=== PATIENT | female | born 1970 | race Caucasian/White ===

== ENCOUNTER → 2016-05-11 | Outpatient (CLI) | payer OTHER | END | disposition home or self-care (01) | LOC: GMAM 10:48 | PROVIDERS: ATTEND Family Medicine | DX: N39.0 Urinary tract infection, site not specified (principal) ==

== ENCOUNTER 2016-06-22 08:58 | Emergency (ER) | payer OTHER ==
[2016-06-22 09:13] VITALS: TEMP 98.5
[2016-06-22] MEDS ORDERED: IBUPROFEN 200 MG TAB PO ONE (09:19)
--- NOTE | 2016-06-22 09:22 | ED.PDOC ---
History of Present Illness - General Chief Complaint: Upper Extremity Injury Stated Complaint: RIGHT WRIST INJURY Time Seen by Provider: 06/22/16 09:05 Source: patient Exam Limitations: no limitations - History of Present Illness Initial Comments: 45 YEAR OLD FEMALE WHO REPORTS RIGHT WRIST PAIN S/P FALL ON AN OUTSTRETCHED HAND WHEN SHE SLIPPED ON A WET FLOOR. Occurred: just prior to arrival Pain - Upper Extremity: mild: Wrist, right Improving Factors: immobilization Worsening Factors: movement Allergies/Adverse Reactions: Allergies Penicillin V [From Pen-Vee-K] Allergy (Severe, Verified 12/31/15 17:18) Amoxicillin Allergy (Verified 12/31/15 17:18) Home Medications: Ambulatory Orders Estradiol 1 mg PO DAILY 08/18/13 Gemfibrozil [Lopid] 600 mg PO BID 08/18/13 Fenofibric Acid [Trilipix] 135 mg PO DAILY #30 cap 07/18/14 Lisinopril 20 mg PO DAILY 11/01/15 Montelukast Sodium [Singulair] 10 mg PO DAILY 11/01/15 Budesonide (Inhalation) [Budesonide] 0.5 mg IN DAILY 11/02/15 Levocetirizine Dihydrochloride [Levocetirizine Dihydrochl] 5 mg PO DAILY Metoprolol Succinate [Metoprolol Succinate ER] 100 mg PO DAILY 11/02/15 Mupirocin 2 % Oint [Bactroban Oint] 1 applic TOP PRN PRN 11/02/15 Insulin Detemir [Levemir Pen] 14 units SUBCU QAM #1 pen 11/08/15 Potassium Chloride Tab [K-Dur] 20 meq PO DAILYBK #30 tab 11/08/15 Cyclobenzaprine HCl [Flexeril] 10 mg PO Q8HRS PRN #20 tab 12/31/15 Ibuprofen 800 mg PO Q8HR PRN #30 tab 06/22/16 Review of Systems - Review of Systems Constitutional: Denies: chills, fever Musculoskeletal: States: see HPI, joint pain. Denies: joint swelling Skin: Denies: change in color, lesions Neurological: Denies: numbness, paresthesia Past Medical History (General) - Patient Medical History Hx Seizures: No Hx Stroke: No Hx Dementia: No Hx Asthma: No Hx of COPD: No Hx Cardiac Disorders: No Hx Congestive Heart Failure: No Hx Pacemaker: No Hx Hypertension: Yes - Pt takes medication at home for hypertension Hx Thyroid Disease: No Hx Diabetes: Yes - Type 2 Hx Gastroesophageal Reflux: No Hx Renal Disease: No Hx Cancer: No Hx of HIV: No Hx Hepatitis C: No Hx MRSA: No Surgical History: cholecystectomy, Hysterectomy, other - Vaccination History Hx Tetanus, Diphtheria Vaccination: Yes Hx Influenza Vaccination: Yes Hx Pneumococcal Vaccination: No - Social History Hx Tobacco Use: No Hx Chewing Tobacco Use: No Hx Alcohol Use: No Hx Substance Use: No Hx Substance Use Treatment: No Hx Depression: No Hx Physical Abuse: No Hx Emotional Abuse: No Hx Suspected Abuse: No - Female History Patient : No Family Medical History - Family History Mother Age (years): 68 Living Status: Still Living Hx Family Asthma: No Hx Family Congestive Heart Failure: No Hx Family Hypertension: No Hx Family Stroke: No Hx Cardiac Disease: No Hx Family Diabetes: No Hx Family Cancer: No Hx Family;Other: Mother has issues with thyroid. Father Age (years): 71 Living Status: Still Living Hx Family Congestive Heart Failure: Yes Hx Family Hypertension: Yes - Hx [place] Hx Family Stroke: No Hx Cardiac Disease: No Hx Family Diabetes: Yes Hx Family Cancer: No Physical Exam - Physical Exam General Appearance: Alert, Comfortable, No apparent distress, Well Developed, Well Groomed Neck: normal inspection Shoulder Exam: normal inspection, non-tender Elbow/Forearm Exam: normal inspection, non-tender Wrist Exam: no evidence of injury, soft tissue tenderness - ALONG THE DISTAL WRIST, NO SWELLING NOTED, N/V INTACT DISTALLY Hand Exam: normal inspection, non-tender Neuro/Tendon: normal sensation, normal motor functions, normal tendon functions Mental Status: alert, oriented x 3 Skin Exam: normal color, warm/dry Progress - Results/Orders Results/Orders: PT REPORTS IMPROVEMENT IN PAIN AFTER IBUPROFEN. XRAY RESULTS DISCUSSED. VELCRO WRIST SPLINT PLACED BY NURSING. - EKG/XRAY/CT Xray Comments: WRIST: NEGATIVE FOR FX OR DISLOCATION PER RAD. Departure - Departure Clinical Impression: Right wrist sprain Time of Disposition: 10:08 Disposition: Discharge to Home or Self Care Condition: Good Departure Forms: ED Discharge - Pt. Copy, Patient Portal Self Enrollment Instructions: DI for Wrist Sprain Referrals: Dylon Minaya MD [Primary Care Provider] - 1-2 Weeks Prescriptions: Ibuprofen 800 mg PO Q8HR PRN #30 tab PRN Reason: Pain Home Medications: Ambulatory Orders Estradiol 1 mg PO DAILY 08/18/13 Gemfibrozil [Lopid] 600 mg PO BID 08/18/13 Fenofibric Acid [Trilipix] 135 mg PO DAILY #30 cap 07/18/14 Lisinopril 20 mg PO DAILY 11/01/15 Montelukast Sodium [Singulair] 10 mg PO DAILY 11/01/15 Budesonide (Inhalation) [Budesonide] 0.5 mg IN DAILY 11/02/15 Levocetirizine Dihydrochloride [Levocetirizine Dihydrochl] 5 mg PO DAILY Metoprolol Succinate [Metoprolol Succinate ER] 100 mg PO DAILY 11/02/15 Mupirocin 2 % Oint [Bactroban Oint] 1 applic TOP PRN PRN 11/02/15 Insulin Detemir [Levemir Pen] 14 units SUBCU QAM #1 pen 11/08/15 Potassium Chloride Tab [K-Dur] 20 meq PO DAILYBK #30 tab 11/08/15 Cyclobenzaprine HCl [Flexeril] 10 mg PO Q8HRS PRN #20 tab 12/31/15 Ibuprofen 800 mg PO Q8HR PRN #30 tab 06/22/16
--- NOTE | 2016-06-22 10:03 | RAD ---
EXAM DESCRIPTION: Wrist,Right 3 Views CLINICAL HISTORY: 45 years Female, RIGHT WRIST PAIN S/P FALL IMPRESSION: 3 views of the right wrist reveal no evidence of fracture or degenerative change. Electronically signed by: Efrem Agarwal MD 06/22/2016 10:02 AM CDT
[2016-06-22 10:30] VITALS: BP 147/91; O2SAT 96
== END 2016-06-22 10:22 | disposition home or self-care (01) ==
LOC: ER 08:58
DX: S63.501A Unspecified sprain of right wrist, initial encounter (principal); I10 Essential (primary) hypertension; E11.9 Type 2 diabetes mellitus without complications; Z79.899 Other long term (current) drug therapy; Z79.4 Long term (current) use of insulin; Z88.0 Allergy status to penicillin; Z88.3 Allergy status to other anti-infective agents; Z82.49 Family history of ischemic heart disease and other diseases of the circulatory system; W01.0XXA Fall on same level from slipping, tripping and stumbling without subsequent striking against object, initial encounter; Y92.9 Unspecified place or not applicable

== ENCOUNTER → 2016-09-16 | Outpatient (CLI) | payer OTHER | END | disposition home or self-care (01) | LOC: GMA 14:48 | DX: R11.0 Nausea (principal) ==

== ENCOUNTER → 2016-09-28 | Outpatient (CLI) | payer OTHER | END | disposition home or self-care (01) | LOC: GMAM 10:49 | PROVIDERS: ATTEND Family Medicine | DX: E55.9 Vitamin D deficiency, unspecified (principal) ==

== ENCOUNTER → 2016-09-29 | Outpatient (CLI) | payer OTHER | END | disposition home or self-care (01) | LOC: GMAM 14:35 | PROVIDERS: ATTEND Family Medicine | DX: D64.9 Anemia, unspecified (principal) ==

== ENCOUNTER → 2017-01-08 | Outpatient (CLI) | payer BC | END | disposition home or self-care (01) | LOC: GMAM 09:53 | PROVIDERS: ATTEND Family Medicine | DX: I10 Essential (primary) hypertension (principal); Z79.4 Long term (current) use of insulin; E55.9 Vitamin D deficiency, unspecified ==

== ENCOUNTER → 2017-02-22 | Outpatient (CLI) | payer BC ==
--- NOTE | 2017-02-22 20:48 | US ---
EXAM DESCRIPTION: Soft Tissue,Extremity: ULTRASOUND. CLINICAL HISTORY: LEFT ANKLE PAIN COMPARISON: None Available. TECHNIQUE: Transcutaneous scanning: Two-dimensional and Doppler modes.. Scanning was performed by the crayon sawyer and Dr. Garcia. FINDINGS: The Achilles tendon is intact with uniform echogenicity and contour. Normal vascularity. Small fluid collections in the soft tissues around the tendon. IMPRESSION: Achilles tendon is intact. Scattered small fluid collections abutting the tendon. Electronically signed by: Austin Garcia MD 02/22/2017 8:46 PM [facility]
== END | disposition home or self-care (01) ==
LOC: US 10:14
PROVIDERS: ATTEND Family Medicine
DX: M25.572 Pain in left ankle and joints of left foot (principal)

== ENCOUNTER → 2017-06-22 | Outpatient (CLI) | payer BC | LOC: GMAM 11:52 → EDSTATUS 11:57 | PROVIDERS: ATTEND Family Medicine | DX: E55.9 Vitamin D deficiency, unspecified (principal) ==

== ENCOUNTER → 2017-06-28 | Outpatient (CLI) | payer BC | LOC: GMAM 10:52 | PROVIDERS: ATTEND Family Medicine | DX: R80.9 Proteinuria, unspecified (principal) ==

== ENCOUNTER → 2017-07-26 | Outpatient (CLI) | payer BC | LOC: LAB.O 15:49 | PROVIDERS: ATTEND Internal Medicine Nephrology | DX: N18.4 Chronic kidney disease, stage 4 (severe) (principal) ==

== ENCOUNTER → 2018-01-18 | Outpatient (CLI) | payer BC | LOC: GMAM 11:17 | PROVIDERS: ATTEND Family Medicine | DX: E55.9 Vitamin D deficiency, unspecified (principal) ==

== ENCOUNTER → 2018-08-15 | Outpatient (CLI) | payer BC | LOC: LAB.O 13:59 | PROVIDERS: ATTEND Otolaryngology | DX: R49.0 Dysphonia (principal) ==

== ENCOUNTER 2019-07-20 17:57 | Inpatient (IN) | payer BC ==
[2019-07-20] MEDS ORDERED: MORPHINE SULFATE INJ 10 MG/ML VIAL IV ONE (18:12)
[2019-07-20] MEDS ORDERED: ONDANSETRON INJ 4 MG/2 ML VIAL IV ONE (18:12)
[2019-07-20] MEDS ORDERED: SODIUM CHLORIDE 0.9% 1000ML 1,000 ML IVS ONE (18:12)
--- NOTE | 2019-07-20 18:15 | ED.PDOC ---
History of Present Illness - General Chief Complaint: GI Problem Stated Complaint: abd pain with vomiting Time Seen by Provider: 07/20/19 18:11 Additional Information: Patient is a 56-year-old female who presents to the ED with chief complaint of upper abdominal pain and vomiting. Patient indicates her symptoms began earlier today and have been constant. Patient has a history of pancreatitis due to hyper triglyceridemia and believes she is suffering from a bout of pancreatitis. Her symptoms are similar to previous episodes of pancreatitis. Patient is status post cholecystectomy. Patient denies fever, chills, chest pain, shortness of breath, diarrhea. Patient indicates her abdominal pain is in her upper abdomen mostly on the left side. Patient denies history of heavy alcohol consumption. Review of Systems - Review of Systems Constitutional: States: no symptoms reported. Denies: chills, fever EENTM: States: no symptoms reported Respiratory: States: no symptoms reported. Denies: cough, short of breath Cardiology: States: no symptoms reported. Denies: chest pain, palpitations Gastrointestinal/Abdominal: States: see HPI, abdominal pain, nausea, vomiting. Denies: constipation, diarrhea Genitourinary: States: no symptoms reported. Denies: dysuria Musculoskeletal: States: no symptoms reported Skin: States: no symptoms reported, rash Neurological: States: no symptoms reported All other Systems: Reviewed and Negative Past Medical History (General) - Patient Medical History Hx Seizures: No Hx Stroke: No Hx Dementia: No Hx Asthma: No Hx of COPD: No Hx Cardiac Disorders: No Hx Congestive Heart Failure: No Hx Pacemaker: No Hx Hypertension: Yes - Pt takes medication at home for hypertension Hx Thyroid Disease: No Hx Diabetes: Yes - Type 2 Hx Gastroesophageal Reflux: No Hx Renal Disease: No Hx Cancer: No Hx of HIV: No Hx Hepatitis C: No Hx MRSA: No - Vaccination History Hx Tetanus, Diphtheria Vaccination: Yes Hx Influenza Vaccination: Yes Hx Pneumococcal Vaccination: No - Social History Hx Tobacco Use: No Hx Chewing Tobacco Use: No Hx Alcohol Use: No Hx Substance Use: No Hx Substance Use Treatment: No Hx Depression: No Hx Physical Abuse: No Hx Emotional Abuse: No Hx Suspected Abuse: No - Female History Patient : No Family Medical History - Family History Father Age (years): 71 Living Status: Still Living Hx Family Congestive Heart Failure: Yes Hx Family Hypertension: Yes - Hx [place] Hx Family Stroke: No Hx Cardiac Disease: No Hx Family Diabetes: Yes Hx Family Cancer: No Mother Age (years): 68 Living Status: Still Living Hx Family Asthma: No Hx Family Congestive Heart Failure: No Hx Family Hypertension: No Hx Family Stroke: No Hx Cardiac Disease: No Hx Family Diabetes: No Hx Family Cancer: No Hx Family;Other: Mother has issues with thyroid. Physical Exam - Physical Exam General Appearance: Alert, Obvious distress - Moderate, Other - Patient is actively vomiting and she has a partially filled emesis bag Eyes, Ears, Nose, Throat Exam: normal ENT inspection Neck: supple Respiratory: chest non-tender, lungs clear, normal breath sounds, no respiratory distress, no accessory muscle use Cardiovascular/Chest: normal peripheral pulses, regular rate, rhythm, no edema, no gallop, no JVD, no murmur Gastrointestinal/Abdominal: soft, tenderness - Moderate left upper quadrant and epigastric tenderness to palpation Back Exam: normal inspection, no CVA tenderness Extremity: normal range of motion, non-tender, normal inspection Neurologic: paper coater II-XII nml as tested, no motor/sensory deficits, alert, normal mood/affect, oriented x 3 Progress - Progress Progress: Differential diagnosis includes but is not limited to pancreatitis, PUD, ACS, colitis. 07/20/19 20:18 Patient feeling much better at this time, her vomiting has subsided. Patient still has abdominal pain but it is controlled following IV fluid and analgesics. Patient's lipase is considerably elevated and it is most likely due to her known severe hypertriglyceridemia. There is no concern for infection. Will maintain patient n.p.o. and admit for bowel rest and medical management. I have discussed with Shahrzad Turner, hospitalist, who agrees to admit patient. Patient is comfortable and stable at this time. - EKG/XRAY/CT Comments: EKG: Normal sinus rhythm, rate of 79, normal axis, nonspecific T wave shepherd Departure - Departure Clinical Impression: Acute pancreatitis Time of Disposition: 20:17 Disposition: Admit Patient Condition: Fair Home Medications: Ambulatory Orders RX: Estradiol 1 mg PO DAILY 08/18/13 RX: Fenofibric Acid [Trilipix] 135 mg PO DAILY #30 cap 07/18/14 RX: Lisinopril 10 mg PO DAILY 11/01/15 RX: Montelukast [Singulair] 10 mg PO DAILY 11/01/15 Insulin Glargine [Lantus Solostar] 25 unit SC BEDTIME 07/20/19 Secukinumab [Cosentyx] 150 mg SC MONTHLY 07/20/19 Decision To Admit - Decistion To Admit Decision to Admit Date: 07/20/19 Decision to Admit Time: 20:18
[2019-07-20] MEDS ORDERED: HYDROmorphone HCL INJ 2 MG/ML VIAL IV ONE ×2 (19:12→20:56)
--- NOTE | 2019-07-20 19:59 | CT ---
EXAM DESCRIPTION: Abdomen/Pelvis w/Contrast CLINICAL HISTORY: abd pain COMPARISON: None Available TECHNIQUE: Contiguous axial images of the abdomen and pelvis were obtained after the administration of intravenous contrast followed by reconstruction images.This exam was performed according to our departmental dose-optimization program, which includes automated exposure control, adjustment of the mA and/or kV according to patient size and/or use of iterative reconstruction technique. FINDINGS: There is enlargement of the pancreatic head with stranding of the peripancreatic fat compatible with acute pancreatitis changes. Linear opacities within the lower lungs may represent scar versus subsegmental atelectasis. Patient is status post hysterectomy. Patient is status post cholecystectomy. There is bilateral spondylolysis at L5. There is grade I spondylolisthesis at L5/S1. The liver, spleen and kidneys are within normal limits. There is no hydronephrosis or renal stones. Adrenal glands are within normal limits. Aorta is of normal caliber and tapering. There is no free fluid in the abdomen or pelvis. There is no bowel obstruction. The appendix is within normal limits. There is no pericecal inflammation. IMPRESSION: Findings compatible with acute pancreatitis. Electronically signed by: Chetan Leon MD 07/20/2019 7:58 PM CDT
--- NOTE | 2019-07-20 20:50 | HP ---
SUPERVISING PHYSICIAN: Anand Rothman MD CHIEF COMPLAINT: Nausea, vomiting and abdominal pain. HISTORY OF PRESENT ILLNESS: This is a 48-year-old female patient who came to the Emergency Room with a chief complaint of upper abdominal pain with nausea and vomiting. The symptoms began earlier today and they have been constant. She does have a significant history of pancreatitis due to hypertriglyceridemia and she felt like she was suffering from a bout of pancreatitis. She has had similar episodes in the past. Her vital signs on admission to the Emergency Room showed temperature 97.8, heart rate 88, blood pressure 164/108, respiratory rate 20, O2 saturation 96% on room air. Laboratory studies showed WBC 12,400, hemoglobin 13, hematocrit 38.7. She had sodium 130, potassium 3.7, chloride 94, carbon dioxide 22, BUN 11, creatinine 0.50, lactic acid 1.9, calcium 9, magnesium 2.8, lipase 3941. Urinalysis showed 100 of urine protein, 500 of urine glucose, large amount of urine blood, trace of leukocyte esterase and too numerous to count urine RBCs. CT of the abdomen showed findings compatible with acute pancreatitis. In the Emergency Room, she was given fluids and pain medications. I was called for hospital admission. PAST MEDICAL HISTORY: 1. Diabetes mellitus, type 2, on oral therapy. 2. Hypertension. 3. Psoriasis. 4. Elevated lipids. 5. History of pancreatitis. 6. Renal failure previously associated with pancreatitis. PAST SURGICAL HISTORY: 1. Cholecystectomy. 2. Hernia repair. 3. Tubal ligation. 4. Hysterectomy. 5. Left knee surgery. 6. Pancreatic pseudocyst that had been drained. 7. Deviated septum surgery. OUTPATIENT MEDICATIONS: Per the EMR and awaiting verification. ALLERGIES: PENICILLIN, AMOXICILLIN. FAMILY HISTORY: Positive for diabetes and coronary artery disease. SOCIAL HISTORY: She lives in [place]. She works as a nurses aid. She was a previous smoker and she drinks alcohol on a social basis. REVIEW OF SYSTEMS: GENERAL: Negative for fever, fatigue or weight changes. HEENT: Negative for sinus symptoms, ear pain, vision changes or sore throat. RESPIRATORY: Negative for wheezing, coughing or shortness of breath. CARDIAC: Negative for chest pain, palpitations or tachycardia. GASTROINTESTINAL: As per history of present illness. GENITOURINARY: Negative for hematuria, dysuria or polyuria. NEUROLOGIC: Negative for headache, dizziness or seizures. PHYSICAL EXAMINATION: VITAL SIGNS: Temperature 97.2, heart rate 78, blood pressure 161/103, respiratory rate 16, O2 saturation 92% on room air. GENERAL: This is a 48-year-old female patient who is lying in her hospital bed. She looks to be in moderate distress due to her nausea and vomiting. HEENT: Normocephalic, atraumatic. Pupils are equal and reactive. Oropharynx is clear. NECK: Supple without mass. RESPIRATORY: Essentially clear to auscultation bilaterally. CHEST: There is equal rise and fall of the chest with inspiration and expiration. CARDIOVASCULAR: Regular rate and rhythm. GASTROINTESTINAL: Abdomen is soft. It is diffusely tender, but especially tender in the epigastric and left upper quadrant area. Bowel sounds are positive. EXTREMITIES: No cyanosis, clubbing or edema. NEUROLOGIC: Awake, alert and oriented times three. Cranial nerves II-XII are grossly intact as tested. LABORATORY: Labs and films are as per history of present illness. IMPRESSION: 1. Acute pancreatitis with a significant history of pancreatitis. Her lipase was greater than 3900. 2. Hyperlipidemia with markedly elevated triglycerides in the past. 3. Electrolyte imbalance, mainly hyponatremia and hypochloremia. 4. Urinary tract infection. 5. Leukocytosis secondary to #1 and #4. 6. Diabetes mellitus, type 2. 7. Hypertension. PLAN: The patient has been admitted to the hospital. I have ordered labs and a lipid panel for in the morning. She will be on Lovenox for DVT prophylaxis and a proton pump inhibitor for ulcer prophylaxis. I have also put her on bowel rest as well as giving her some IV fluids. She has also got pain medications as well as antiemetics. She may need a surgical consult in the morning with general surgery. I have also put her on Rocephin for her urinary tract infection. Blood cultures have been ordered as well as urine culture. We will continue to monitor the patient closely and follow as needed. #[id number] [facility]
[2019-07-20] MEDS ORDERED: ONDANSETRON INJ 4 MG/2 ML VIAL IV PRN (20:55)
[2019-07-20] MEDS ORDERED: SODIUM CHLORIDE 0.9% (FLUSH) 10 ML SYG IV PRN (20:55)
[2019-07-20] MEDS ORDERED: HYDROmorphone HCL INJ 2 MG/ML VIAL IV PRN (20:59)
[2019-07-20] MEDS ORDERED: GLUCAGON INJ 1 MG VIAL SUBCU PRN (21:01)
[2019-07-20] MEDS ORDERED: DEXTROSE 50% 25 GM/50 ML SYG IV PRN (21:01)
[2019-07-20] MEDS ORDERED: cefTRIAXone SODIUM 1 GM in SODIUM CHL 0.9% 50ML MIN-BAG+ 50 ML IVPB ONE (21:02)
[2019-07-20] MEDS ORDERED: cefTRIAXone SODIUM 1 GM VIAL ONE (21:33)
[2019-07-20] MEDS ORDERED: SODIUM CHL 0.9% 50ML MIN-BAG+ 50 ML IVPB ONE (21:34)
[2019-07-20] MEDS: IV SET AND CAP CHANGE INJ INJ SCH (21:39)
[2019-07-20] MEDS: DEX 5% W/NACL 0.9% 1000ML 1,000 ML IVS PRN (21:39)
[2019-07-20] MEDS: ENOXAPARIN SODIUM 40 MG/0.4 ML SYG SUBCU SCH (21:40)
[2019-07-20] MEDS ORDERED: PROMETHAZINE HCL INJ 25 MG/ML VIAL ONE ×2 (22:26→22:57)
[2019-07-20] MEDS ORDERED: SODIUM CHLORIDE 0.9% 50ML 50 ML ONE ×2 (22:26→22:57)
[2019-07-20] MEDS: PROMETHAZINE HCL INJ 25 MG in SODIUM CHLORIDE 0.9% 50ML 50 ML IVPB PRN (22:29)
[2019-07-20] MEDS ORDERED: PROMETHAZINE HCL INJ 25 MG in SODIUM CHLORIDE 0.9% 50ML 50 ML IVPB ONE (22:50)
[2019-07-20] MEDS: HYDROmorphone HCL INJ 2 MG/ML VIAL IV PRN (23:10)
[2019-07-21] MEDS: INSULIN LISPRO 100 UNITS/ML PEN SUBCU SCH ×4 (00:13→18:03)
[2019-07-21] MEDS ORDERED: SODIUM CHLORIDE 0.9% 50ML 50 ML ONE (02:18)
[2019-07-21] MEDS ORDERED: PROMETHAZINE HCL INJ 25 MG/ML VIAL ONE (02:18)
[2019-07-21] MEDS: HYDROmorphone HCL INJ 2 MG/ML VIAL IV PRN ×4 (02:30→21:02)
[2019-07-21] MEDS: PROMETHAZINE HCL INJ 25 MG in SODIUM CHLORIDE 0.9% 50ML 50 ML IVPB PRN (02:30)
[2019-07-21] MEDS: PANTOPRAZOLE SODIUM TAB 40 MG PO SCH (06:11)
[2019-07-21] MEDS ORDERED: CALCIUM GLUCONATE INJ 1 GM in SODIUM CHLORIDE 0.9% 50ML 50 ML IVPB ONE (08:55)
[2019-07-21] MEDS ORDERED: cefTRIAXone SODIUM 1 GM VIAL ONE (09:12)
[2019-07-21] MEDS ORDERED: SODIUM CHL 0.9% 50ML MIN-BAG+ 50 ML IVPB ONE (09:14)
[2019-07-21] MEDS: DEX 5% W/NACL 0.9% 1000ML 1,000 ML IVS PRN (09:21)
[2019-07-21] MEDS: cefTRIAXone SODIUM 1 GM in SODIUM CHL 0.9% 50ML MIN-BAG+ 50 ML IVPB SCH (10:34)
[2019-07-21] MEDS ORDERED: SODIUM CHLORIDE 0.9% 1000ML 1,000 ML IVS ONE ×2 (11:31→11:32)
[2019-07-21] MEDS: FENOFIBRIC ACID 135 MG CAP PO SCH (12:36)
[2019-07-21] MEDS ORDERED: SIMETHICONE 80 MG TAB PO PRN (12:38)
[2019-07-21] MEDS: CALCITRIOL 0.25 MCG CAP PO SCH (17:07)
[2019-07-21] MEDS ORDERED: ICOSAPENT ETHYL 1 GM PO SCH (18:45)
[2019-07-21] MEDS: [UNRECOGNIZED DRUG - OTHER] PO SCH (19:08)
[2019-07-21] MEDS: ENOXAPARIN SODIUM 40 MG/0.4 ML SYG SUBCU SCH (20:09)
--- NOTE | 2019-07-21 20:21 | PN ---
SUPERVISING PHYSICIAN: Lester Rothman MD DATE: 07/21/19 SUBJECTIVE: The patient says she still feels pretty bad this morning, still having some abdominal pains. I have discussed with her that I will have Dr. Roper, general surgeon, take a look at her as well as review her imaging studies. She has no further complaints. She is not showing any signs of hypocalcemia, although her calcium was low this morning. She is actually able to tolerate some ice chips and some jello. OBJECTIVE: VITAL SIGNS: Temperature 98.2, pulse 98, blood pressure 115/63, respirations 18, oxygen saturation 93% on room air. GENERAL: Patient does appear a little uncomfortable but is not in any obvious distress. She is alert. CHEST: Lung sounds are clear to auscultation. HEART: Regular rate and rhythm. ABDOMEN: Soft but diffusely tender. No rebound tenderness, no guarding, no peritoneal signs. EXTREMITIES: Without any edema. NEUROLOGICAL: She is alert, and oriented x3. LABORATORY: Sodium this morning was 131 corrected to 137. Her blood sugar was 437. Anion gap was normal. BUN 9, creatinine 0.49, calcium 6.7 corrected to 7.2 for normal albumin, bilirubin 0.5. All other liver functions were within normal limits. Lipase had improved from 3941 to 699. Her lipid panel did show elevated cholesterol at 777 with triglyceride of 8486, HDL 25, LDL 68. Urinalysis showed urinary tract infection. MICROBIOLOGY: Urine cultures pending. Blood cultures pending. RADIOLOGY: No additional radiographic studies today. ASSESSMENT: 1. Acute pancreatitis secondary to elevated triglyceride levels with lipase returning to baseline level with fluids. 2. Markedly elevated triglycerides with a history of hyperlipidemia. 3. Electrolyte imbalance secondary to #1 including hypocalcemia with patient being asymptomatic. . 4. Urinary tract infection, culture pending. 5. Leukocytosis secondary to #1 and #4. 6. Diabetes mellitus, type 2. 7. Hypertension. PLAN: We will continue patient's treatments this morning with fluids. Will give her 2 liters normal saline, repeat BMP this afternoon. Plan to increase her baseline maintenance fluids with 250 until she is having good output. I have requested Dr. Roper see the patient in consultation to make sure there is not something else we are missing after looking at the CT study.. She is on Rocephin for the underlying urinary tract infection. Will await those cultures for results. Until we can transition her to outpatient management, we will continue to monitor and treat as needed, #[id number] [facility]
[2019-07-21] MEDS ORDERED: KCL 20MEQ/D5 1/2NS 1,000 ML IVS ONE (21:16)
[2019-07-21] MEDS: KCL 20MEQ/D5 1/2NS 1,000 ML IVS PRN (21:25)
[2019-07-21] MEDS ORDERED: ACETAMINOPHEN 325 MG TAB PO ONE (23:57)
[2019-07-22] MEDS: INSULIN LISPRO 100 UNITS/ML PEN SUBCU SCH ×4 (01:02→17:55)
[2019-07-22] MEDS: KCL 20MEQ/D5 1/2NS 1,000 ML IVS PRN (05:16)
[2019-07-22] MEDS: PANTOPRAZOLE SODIUM TAB 40 MG PO SCH (06:36)
[2019-07-22] MEDS: HYDROmorphone HCL INJ 2 MG/ML VIAL IV PRN (07:09)
[2019-07-22] MEDS: FENOFIBRIC ACID 135 MG CAP PO SCH (08:58)
[2019-07-22] MEDS: CALCITRIOL 0.25 MCG CAP PO SCH (08:59)
[2019-07-22] MEDS: cefTRIAXone SODIUM 1 GM in SODIUM CHL 0.9% 50ML MIN-BAG+ 50 ML IVPB SCH (09:00)
[2019-07-22] MEDS: LISINOPRIL 10 MG TAB PO SCH (09:15)
[2019-07-22] MEDS: ESTRADIOL TAB 1 MG PO SCH (09:15)
[2019-07-22] MEDS: ICOSAPENT ETHYL 2 GM PO SCH ×3 (09:39→18:25)
[2019-07-22] MEDS: [UNRECOGNIZED DRUG - OTHER] PO SCH ×3 (09:40→17:55)
[2019-07-22] MEDS ORDERED: ACETAMINOPHEN 325 MG TAB ONE (11:15)
[2019-07-22] MEDS ORDERED: ACETAMINOPHEN 325 MG TAB PO ONE (11:18)
[2019-07-22] MEDS ORDERED: CALCIUM GLUCONATE INJ 1 GM/10 ML VIAL IV ONE (11:20)
[2019-07-22] MEDS ORDERED: CALCIUM GLUCONATE INJ 1 GM in SODIUM CHLORIDE 0.9% 50ML 50 ML IVPB ONE (12:00)
--- NOTE | 2019-07-22 17:08 | PN ---
SUPERVISING PHYSICIAN: Lester Rothman MD DATE: 07/22/19 SUBJECTIVE: The patient has been tolerating some Jello and clear liquids this morning. She notes she is still having some abdominal pain but not quite as severe as it was yesterday. We have resumed her home medication, I encouraged her to start taking adequate oral intake and we can certainly monitor. She has not had any chest pain, nausea is gone, no actual emesis today. I did discuss with Dr. Wilson, the patient's calcium levels and he recommended we repeat it daily and if we need to, give her calcium gluconate along with some daily Calcitrol which has been initiated. Again, she again is not showing any signs, being symptomatic in regards to the hypocalcemia. OBJECTIVE: VITAL SIGNS: Temperature 98.2, pulse 108, blood pressure 126/56, respirations 20, oxygen saturation 93% on room air. GENERAL: Patient is resting comfortably, does not appear to be in any acute distress. CHEST: Clear to auscultation. HEART: Regular rate and rhythm. ABDOMEN: Soft, continued tenderness on the left upper quadrant which appears to be some diffuse tenderness down into the lower regions but no rebound tenderness, no guarding. NEUROLOGICAL: She is alert, and oriented x3. LABORATORY: White count was normalized yesterday, today her chemistries are showing normal electrolytes. Her lipase is down to 139, calcium 6.3, magnesium normal at 2.0, calcium corrects to 7.2 with albumin from yesterday. Blood sugars range between 137 and 212. MICROBIOLOGY: Blood cultures remain negative at 24 hours. Urine cultures pending. RADIOLOGY: No additional radiographic studies today. ASSESSMENT: 1. Acute pancreatitis secondary to elevated triglyceride levels with lipase returning to baseline level with fluids. 2. Markedly elevated triglycerides with a history of hyperlipidemia. 3. Electrolyte imbalance secondary to #1 including hypocalcemia with patient being asymptomatic. . 4. Urinary tract infection, culture pending. 5. Leukocytosis secondary to #1 and #4. 6. Diabetes mellitus, type 2. 7. Hypertension. PLAN: We will go ahead and plan on giving her another gram of calcium gluconate given the level of calcium this morning. I did start her on Calcitrol yesterday from nephrology, Dr. Wilson. Her pain is much less today and she is wanting to try to eat so we discussed going to full liquid, however, if she does not have additional nausea or vomiting, certainly we will have to modify the diet. She continues on pain management as needed. We will go ahead and saline-lock once she has adequate oral intake. We will plan to repeat labs tomorrow but I would anticipate if she is doing as well tomorrow as she is today, then we can probably discharge her home to followup in the outpatient setting. Until then, we will continue to monitor and treat as needed. #[id number] [facility]
[2019-07-22] MEDS: ACETAMINOPHEN 325 MG TAB PO PRN (19:56)
[2019-07-22] MEDS: ENOXAPARIN SODIUM 40 MG/0.4 ML SYG SUBCU SCH (20:56)
[2019-07-23] MEDS: INSULIN LISPRO 100 UNITS/ML PEN SUBCU SCH ×5 (00:54→21:10)
[2019-07-23] MEDS: PANTOPRAZOLE SODIUM TAB 40 MG PO SCH (06:27)
[2019-07-23] MEDS: ICOSAPENT ETHYL 2 GM PO SCH ×2 (08:19→16:36)
[2019-07-23] MEDS: [UNRECOGNIZED DRUG - OTHER] PO SCH ×2 (08:20→16:35)
[2019-07-23] MEDS: LISINOPRIL 10 MG TAB PO SCH (10:09)
[2019-07-23] MEDS: ESTRADIOL TAB 1 MG PO SCH (10:09)
[2019-07-23] MEDS: FENOFIBRIC ACID 135 MG CAP PO SCH (10:09)
[2019-07-23] MEDS: CALCITRIOL 0.25 MCG CAP PO SCH (10:09)
[2019-07-23] MEDS: cefTRIAXone SODIUM 1 GM in SODIUM CHL 0.9% 50ML MIN-BAG+ 50 ML IVPB SCH (10:09)
[2019-07-23] MEDS: ACETAMINOPHEN 325 MG TAB PO PRN (13:50)
--- NOTE | 2019-07-23 16:33 | PN ---
SUPERVISING PHYSICIAN: Lester Rothman MD DATE: 07/23/19 SUBJECTIVE: The patient ran a fever last night of 101.9. She has not had any nausea, she reports her abdominal pain is much less today. She has tolerated a full liquid diet. We discussed advancing her diet today with hopefully discharging tomorrow. She has no chest pain, no other complaints. OBJECTIVE: VITAL SIGNS: Temperature 98.5, pulse 97, blood pressure 147/82, respirations 16, oxygen saturation 98% on room air. GENERAL: Patient is resting comfortably, does not appear to be in any acute distress. She is alert. CHEST: Clear to auscultation. HEART: Regular rate and rhythm. ABDOMEN: Soft, mild tenderness noted in the left upper quadrant. No rebound tenderness, no guarding, no point tenderness. EXTREMITIES: Without edema. NEUROLOGICAL: She is alert, and oriented x3. LABORATORY: White count continues to be normal at 8.2, hemoglobin 10.5, hematocrit 31.7. Differential shows a resolving left shift. Chemistries show a mildly low potassium at 3.4, BUN 9, creatinine 0.58. Blood sugars range between 115 and 166. Triglycerides this morning were 1252 compared to admission of 86 and her cholesterol is down from 777 to 311. Lipase now is near normal levels at 78 compared to admission of 3941. MICROBIOLOGY: Blood cultures remain negative at 48 hours. Urine cultures pending but preliminary inhouse culture for comparison for CPL showed an E. coli that was sensitive to cephalosporins but we are still awaiting on the report. RADIOLOGY: No additional radiographic studies today. ASSESSMENT: 1. Acute pancreatitis secondary to elevated triglyceride levels resolving with treatment but with a mild fever. 2. Markedly elevated triglycerides with a history of hyperlipidemia contributing to #1. 3. Electrolyte imbalance secondary to #1 including hypocalcemia with patient being asymptomatic. . 4. Persistent hypocalcemia secondary to #1 but returning to baseline levels with patient being asymmetric. 5. Urinary tract infection, preliminary showing E. coli which was sensitive to cephalosporin there was final cultures pending. 5. Leukocytosis secondary to #1 and #4, resolved. 6. Diabetes mellitus, type 2 with stable blood sugars. 7. Hypertension, showing to be stable. PLAN: We were hoping to discharge her today but we really do not have her diet advanced and given she had 101.9 fever last night and has had a history of necrotizing pancreatitis, I think it is warranted we keep her at least an additional 24 hours and monitor as well as work to advance her diet. I would anticipate that if everything looks good tomorrow and she has not had anymore fever, then she certainly would be discharged to titrate her diet as tolerated and followup with Dr. Minaya. She will need to go home on antibiotics for the urinary tract infection, again, preliminary unofficial report showed E. coli that is sensitive to cephalosporins. I am not sure when that report will be finalized. We will keep her saline-locked as long she she is having adequate oral intake. Until we can transition her to outpatient management, we will continue to monitor and treat as needed #[id number] MTDD
--- NOTE | 2019-07-23 16:54 | PN ---
DATE: 07/23/19 SUBJECTIVE: Hospital day #3, pancreatitis. She is currently feeling well, says the pain is much, much better. She is tolerating her diet. OBJECTIVE: VITAL SIGNS: Temperature 99 and 98.4. She did have a T-max of 101 but that is down. She is non-tachycardiac. Blood pressure is normal. GENERAL: She is alert and oriented x3, feeling well. CHEST: Clear. ABDOMEN: Soft, non-tender with only mild tenderness to deep palpation discomfort but no rebound and no guarding. SKIN: No color changes. LABORATORY: White count 8, hematocrit 31, platelet count 166,000. Potassium 2.2, glucose 127. Triglycerides near 1200 down from 8,400. Lipase 699 down from 3900. ASSESSMENT: Pancreatitis with a history of pancreatitis previously with endoscopic drainage of pancreatitis pseudocyst with the current pancreatitis likely due to hypertriglyceridemia. Pancreatitis and triglycerides are coming down and she is feeling much better since she is on medications and will likely go home in the morning as planned. RECOMMENDATION: Followup with her primary care physician and I recommend she educate herself on potential dietary triggers for hypertriglycerides and try to avoid any the foods that are discouraged. Will continue medication and again followup with her primary care physician. #[id number] MTDD
[2019-07-23] MEDS: SODIUM CHLORIDE 0.9% (FLUSH) 10 ML SYG IV SCH (21:11)
[2019-07-23] MEDS: ENOXAPARIN SODIUM 40 MG/0.4 ML SYG SUBCU SCH (21:11)
[2019-07-23] MEDS: IV SET AND CAP CHANGE INJ INJ SCH (21:11)
[2019-07-24] MEDS: ACETAMINOPHEN 325 MG TAB PO PRN (00:07)
[2019-07-24] MEDS: PANTOPRAZOLE SODIUM TAB 40 MG PO SCH (05:42)
[2019-07-24] MEDS: INSULIN LISPRO 100 UNITS/ML PEN SUBCU SCH ×2 (07:00→11:30)
[2019-07-24] MEDS: [UNRECOGNIZED DRUG - OTHER] PO SCH (08:06)
[2019-07-24] MEDS: ICOSAPENT ETHYL 2 GM PO SCH (08:07)
[2019-07-24] MEDS: LISINOPRIL 10 MG TAB PO SCH (09:43)
[2019-07-24] MEDS: FENOFIBRIC ACID 135 MG CAP PO SCH (09:43)
[2019-07-24] MEDS: ESTRADIOL TAB 1 MG PO SCH (09:43)
[2019-07-24] MEDS: CALCITRIOL 0.25 MCG CAP PO SCH (09:43)
[2019-07-24] MEDS: SODIUM CHLORIDE 0.9% (FLUSH) 10 ML SYG IV SCH (09:44)
[2019-07-24] MEDS: cefTRIAXone SODIUM 1 GM in SODIUM CHL 0.9% 50ML MIN-BAG+ 50 ML IVPB SCH (09:45)
[2019-07-24 13:00] VITALS: O2SAT 99
--- NOTE | 2019-07-24 14:41 | DS ---
SUPERVISING PHYSICIAN: Cosmo Keating MD ADMISSION DIAGNOSIS: 1. Acute pancreatitis. 2. Hyperlipidemia. 3. Hypertriglyceridemia. 4. Urinary tract infection. 5. Leukocytosis. 6. Diabetes mellitus, type 2. 7. Hypertension. DISCHARGE DIAGNOSIS: 1. Acute pancreatitis. 2. Hyperlipidemia. 3. Hypertriglyceridemia. 4. Urinary tract infection. 5. Leukocytosis. 6. Diabetes mellitus, type 2. 7. Hypertension. HISTORY OF PRESENT ILLNESS: This is a 48-year-old female who came to the Emergency Room with a chief complaint of upper abdominal pain associated with nausea and vomiting. She apparently does have a history of pancreatitis secondary to hypertriglyceridemia. She was seen in the ER and noted to have a lipase of 3,941. Additionally, she had triglyceride count of 8,486. HOSPITAL COURSE: On admission, she was given fluids and antibiotics. Lipase trended down as well as triglycerides. The patient's abdominal pain resolved. Therefore, she is discharged today in stable condition. I have written her discharge prescriptions to include Calcitriol and antibiotics for urinary tract infection that will be Ceftin. She did have gram negative rods in her urine, but the actual identification and sensitivity is not back yet. Followup with her primary care physician in about a week. #[id number] MTDD
[2019-07-24 16:44] VITALS: BP 138/72; TEMP 97.1
== END 2019-07-24 14:10 | disposition home or self-care (01) | DRG 439 ==
LOC: ER 17:57 → OBSVTOIN 20:49 → MS 20:49
PROVIDERS: ADMIT Nurse Practitioner Acute Care; ATTEND Nurse Practitioner
PROC: BW211ZZ Computerized Tomography (CT Scan) of Abdomen and Pelvis using Low Osmolar Contrast (ICD-10-PCS; principal; 2019-07-20)
DX: K85.91 Acute pancreatitis with uninfected necrosis, unspecified (principal); N39.0 Urinary tract infection, site not specified; E87.1 Hypo-osmolality and hyponatremia; E78.1 Pure hyperglyceridemia; B96.20 Unspecified Escherichia coli [E. coli] as the cause of diseases classified elsewhere; E11.9 Type 2 diabetes mellitus without complications; I10 Essential (primary) hypertension; L40.9 Psoriasis, unspecified; E83.51 Hypocalcemia; Z88.0 Allergy status to penicillin; Z87.891 Personal history of nicotine dependence

== ENCOUNTER → 2019-08-29 | Outpatient (CLI) | payer BC | LOC: GMAM 14:25 | PROVIDERS: ATTEND Family Medicine | DX: K85.90 Acute pancreatitis without necrosis or infection, unspecified (principal) ==

== ENCOUNTER → 2019-12-14 | Outpatient (CLI) | payer BC | LOC: GMAM 10:34 | PROVIDERS: ATTEND Family Medicine | DX: R30.0 Dysuria (principal) ==

== ENCOUNTER → 2020-03-07 | Outpatient (CLI) | payer BC | LOC: LAB.O 07:43 | PROVIDERS: ATTEND Internal Medicine Endocrinology, Diabetes & Metabolism | DX: E11.40 Type 2 diabetes mellitus with diabetic neuropathy, unspecified (principal); E78.1 Pure hyperglyceridemia; Z13.29 Encounter for screening for other suspected endocrine disorder ==

== ENCOUNTER → 2020-03-14 | Outpatient (CLI) | payer BC | LOC: GMAM 15:09 | PROVIDERS: ATTEND Family Medicine | DX: N39.0 Urinary tract infection, site not specified (principal) ==

== ENCOUNTER 2020-03-17 01:19 | Emergency (ER) | payer BC ==
[2020-03-17] MEDS ORDERED: PROMETHAZINE HCL INJ 25 MG in SODIUM CHLORIDE 0.9% 50ML 50 ML IVPB ONE (01:31)
[2020-03-17] MEDS ORDERED: KETOROLAC TROMETHAMINE INJ 30 MG/ML VIAL IM ONE (01:31)
[2020-03-17] MEDS ORDERED: MORPHINE SULFATE INJ 10 MG/ML VIAL IV ONE ×2 (01:31→04:33)
[2020-03-17] MEDS ORDERED: SODIUM CHLORIDE 0.9% 1000ML 1,000 ML IVS ONE ×2 (01:32→03:45)
--- NOTE | 2020-03-17 02:15 | ED.PDOC ---
History of Present Illness - General Chief Complaint: Back Pain or Injury Stated Complaint: Rt side flanke radiating Time Seen by Provider: 03/17/20 01:23 Source: patient Exam Limitations: no limitations - History of Present Illness Initial Comments: The patient is a 49-year-old female presented emergency room secondary to abdominal pain that started about 3 hours ago.. Pain was gradual in onset. Her initial localization is to the right upper quadrant and right flank, however pain upon palpation is more epigastric and right upper quadrant. No definite palpable mass. She does have some guarding, whether this is voluntary or involuntary I am unsure. The patient has had a history of pancreatitis in the past on multiple occasions, reportedly by her due to to hypertriglyceridemia. Patient is having some nausea. She denies any fever. No unusual symptoms other than pain otherwise. The patient does have a known urinary tract infection and has been taking Bactrim. Triglycerides were approximately 2500 10 days ago. The patient reports that she has been getting good blood sugars recently. Timing/Duration: 1-3 hours Severity: moderate Improving Factors: nothing Worsening Factors: nothing Associated Symptoms: loss of appetite Allergies/Adverse Reactions: Allergies Penicillin V [From Pen-Vee-K] Allergy (Severe, Verified 03/17/20 03:50) Amoxicillin Allergy (Verified 03/17/20 03:50) Home Medications: Ambulatory Orders Estradiol 1 mg PO DAILY 08/18/13 Fenofibric Acid [Trilipix] 135 mg PO DAILY #30 cap 07/18/14 Lisinopril 10 mg PO DAILY 11/01/15 Montelukast [Singulair] 10 mg PO DAILY 11/01/15 Insulin Glargine [Lantus Solostar] 25 unit SC BEDTIME 07/20/19 Secukinumab [Cosentyx] 150 mg SC MONTHLY 07/20/19 Canagliflozin-Metformin HCl [Invokamet 150-1000 mg] 1 tab PO DAILY 07/21/19 Icosapent Ethyl [Vascepa] 1 gm PO DAILY 07/21/19 Calcitriol [Rocaltrol] 0.25 mcg PO DAILY 7 Days #7 cap 07/24/19 Cefuroxime Axetil [Ceftin] 500 mg PO Q12H 7 Days #14 tablet 07/24/19 Atorvastatin Calcium [Lipitor] 10 mg PO DAILY 03/17/20 Dapagliflozin-Metformin HCl [Xigduo Xr 5-1000 mg] 1 tab PO BID 03/17/20 Esomeprazole Magnesium 20 mg PO DAILY 03/17/20 Ferrous Gluconate [Fergon] 325 mg PO DAILY 03/17/20 Review of Systems - Review of Systems Constitutional: States: no symptoms reported EENTM: States: no symptoms reported Respiratory: States: no symptoms reported Cardiology: States: no symptoms reported Gastrointestinal/Abdominal: States: abdominal pain, nausea Musculoskeletal: States: no symptoms reported Skin: States: no symptoms reported Neurological: States: no symptoms reported Endocrine: States: no symptoms reported All other Systems: No Change from Baseline Past Medical History (General) - Patient Medical History Hx Seizures: No Hx Stroke: No Hx Dementia: No Hx Asthma: No Hx of COPD: No Hx Cardiac Disorders: No Hx Congestive Heart Failure: No Hx Pacemaker: No Hx Hypertension: Yes - Pt takes medication at home for hypertension Hx Thyroid Disease: No Hx Diabetes: Yes - Type 2 Hx Gastroesophageal Reflux: No Hx Renal Disease: No Hx Cancer: No Hx of HIV: No Hx Hepatitis C: No Hx MRSA: No - Vaccination History Hx Tetanus, Diphtheria Vaccination: Yes Hx Influenza Vaccination: Yes Hx Pneumococcal Vaccination: No - Social History Hx Tobacco Use: No Hx Chewing Tobacco Use: No Hx Alcohol Use: No Hx Substance Use: No Hx Substance Use Treatment: No Hx Depression: No Hx Physical Abuse: No Hx Emotional Abuse: No Hx Suspected Abuse: No - Female History Patient : No Family Medical History - Family History Mother Age (years): 68 Living Status: Still Living Hx Family Asthma: No Hx Family Congestive Heart Failure: No Hx Family Hypertension: No Hx Family Stroke: No Hx Cardiac Disease: No Hx Family Diabetes: No Hx Family Cancer: No Hx Family;Other: Mother has issues with thyroid. Father Age (years): 71 Living Status: Still Living Hx Family Congestive Heart Failure: Yes Hx Family Hypertension: Yes - Hx [place] Hx Family Stroke: No Hx Cardiac Disease: No Hx Family Diabetes: Yes Hx Family Cancer: No Physical Exam - Physical Exam General Appearance: Alert, Obvious distress Eye Exam: bilateral normal Ears, Nose, Throat: hearing grossly normal, normal pharynx Neck: non-tender, supple Respiratory: lungs clear, normal breath sounds, no respiratory distress, no accessory muscle use Cardiovascular/Chest: normal peripheral pulses, regular rate, rhythm, no edema Peripheral Pulses: radial,right: 2+, radial,left: 2+ Gastrointestinal/Abdominal: soft, other - Epigastric and right upper quadrant discomfort to palpation. The patient has already had her gallbladder removed. Rectal Exam: deferred Back Exam: no CVA tenderness, no vertebral tenderness Extremity: normal range of motion, non-tender, normal inspection, no pedal edema, normal capillary refill Neurologic: outside rigger II-XII nml as tested, alert, normal mood/affect, oriented x 3 Skin Exam: normal color Comments: Vital Signs - 24 hr 03/17/20 01:46 Temperature 96.7 F L Pulse Rate [ 92 H left] Respiratory 18 Rate Blood Pressure 167/123 [Left Arm] O2 Sat by Pulse 98 Oximetry Last blood pressure is 158/97 Progress - Progress Progress: 03/17/20 04:19 The patient is a 49-year-old female presented emergency room with what is most likely right-sided pyelonephritis along with an acute pancreatitis episode. This would like the patient's pancreatitis episode. Pancreatitis appears to be due to hypertriglyceridemia. Laboratory work had to be diluted so most numbers are calculations and approximations. Laboratory work should be repeated at the receiving facility. Lipase is estimated at around 1600 and amylase around 700. Glucose is estimated around 600. Sodium is estimated around 117. Urinalysis shows a few ketones. The patient is receiving 10 units of IV insulin. She has received a liter of IV fluids and is being placed on normal saline at 250 cc/h with 20 mEq of potassium. She has received antiemetics and pain medications. She is also received a dose of Rocephin and Levaquin for the pyelonephritis. Transferring for specialty and higher level of care. Acceptance is appreciated. lorenza sahu [phone] - Results/Orders Results/Orders: CT scan of abdomen pelvis showed inflammation of the pancreatic head consistent with acute pancreatitis. No obvious renal pathology. See report for details. Laboratory Tests 03/17/20 03/17/20 03/17/20 01:40 01:40 01:40 PT INR PTT (SP) Not Reportable Sodium 117 L* Potassium 3.3 L Chloride 86 L Carbon Dioxide 17 L Anion Gap 17.3 BUN 19 H Creatinine < 0.40 L BUN/Creatinine Ratio 47.0 H Random Glucose 611 H* Serum Osmolality 265.5 L Lactic Acid 3.6 H* Calcium 8.6 Magnesium 4.9 H AST 51 H ALT 71 H Alkaline Phosphatase 41 L Creatine Kinase 766 H* CK-MB (CK-2) 4.0 CK-MB (CK-2) % 0.52 Troponin I < 0.02 B-Natriuretic Peptide 15.4 Serum Total Protein 4.6 L Albumin 4.1 Globulin 0.5 L Albumin/Globulin Ratio 8.2 H Amylase 667 H* Lipase 1679 H Urine Color Urine Appearance Urine pH Ur Specific Ada Urine Protein Urine Glucose (UA) Urine Ketones Urine Blood Urine Nitrite Urine Bilirubin Urine Urobilinogen Ur Leukocyte Esterase Urine RBC Urine WBC Ur Epithelial Cells Urine Bacteria 03/17/20 03:00 PT INR PTT (SP) Sodium Potassium Chloride Carbon Dioxide Anion Gap BUN Creatinine BUN/Creatinine Ratio Random Glucose Serum Osmolality Lactic Acid Calcium Magnesium AST ALT Alkaline Phosphatase Creatine Kinase CK-MB (CK-2) CK-MB (CK-2) % Troponin I B-Natriuretic Peptide Serum Total Protein Albumin Globulin Albumin/Globulin Ratio Amylase Lipase Urine Color Dk yellow H Urine Appearance Cloudy Urine pH 5.5 Ur Specific Ada 1.015 Urine Protein 100 H Urine Glucose (UA) 500 H Urine Ketones Trace Urine Blood Large H Urine Nitrite Positive H Urine Bilirubin Negative Urine Urobilinogen 0.2 Ur Leukocyte Esterase Negative Urine RBC >50 H Urine WBC 20-30 H Ur Epithelial Cells 10-20 Urine Bacteria 1+ Departure - Departure Clinical Impression: Recurrent pancreatitis, Hypertriglyceridemia, Pyelonephritis, Hyponatremia, Hyperglycemia Disposition: Transfer to Hospital Condition: Poor Departure Forms: ED Discharge - Pt. Copy, Patient Portal Self Enrollment Instructions: DI for Low Back Pain Referrals: Dylon Sahu MD [Primary Care Provider] - 1-2 Weeks Home Medications: Ambulatory Orders Estradiol 1 mg PO DAILY 08/18/13 Fenofibric Acid [Trilipix] 135 mg PO DAILY #30 cap 07/18/14 Lisinopril 10 mg PO DAILY 11/01/15 Montelukast [Singulair] 10 mg PO DAILY 11/01/15 Insulin Glargine [Lantus Solostar] 25 unit SC BEDTIME 07/20/19 Secukinumab [Cosentyx] 150 mg SC MONTHLY 07/20/19 Canagliflozin-Metformin HCl [Invokamet 150-1000 mg] 1 tab PO DAILY 07/21/19 Icosapent Ethyl [Vascepa] 1 gm PO DAILY 07/21/19 Calcitriol [Rocaltrol] 0.25 mcg PO DAILY 7 Days #7 cap 07/24/19 Cefuroxime Axetil [Ceftin] 500 mg PO Q12H 7 Days #14 tablet 07/24/19 Atorvastatin Calcium [Lipitor] 10 mg PO DAILY 03/17/20 Dapagliflozin-Metformin HCl [Xigduo Xr 5-1000 mg] 1 tab PO BID 03/17/20 Esomeprazole Magnesium 20 mg PO DAILY 03/17/20 Ferrous Gluconate [Fergon] 325 mg PO DAILY 03/17/20 Transfer to Outside Facility - Transfer Information Decision to Transfer Date: 03/17/20 Decision to Transfer Time: 04:23 Reason for Transfer: specialized care not available Accepting Provider:: dr felisa ledezma Accepting Facility: [facility]
--- NOTE | 2020-03-17 03:17 | CT ---
EXAM DESCRIPTION: Abdoment/Pelvis w/o Contrast 03/17/2020 3:08 AM [employer] CLINICAL HISTORY: 49 years, Female, upper rt abd pain, hx recurrent pancreatitis COMPARISON: 07/20/2019 PROCEDURE: Multiple transaxial tomograms of the abdomen and pelvis were performed from the lung bases to the symphysis pubis 2.5 mm slice thickness at 2.5 mm interval reconstruction, without administration of IV and oral contrast. Multiplanar reformats in the sagittal and coronal plane were generated and reviewed. An individualized dose optimization technique, Automated Exposure Control, was utilized for the performed procedure. FINDINGS: The lack of IV and oral contrast limits evaluation of solid organs, subtle lesions cannot be excluded. The lung bases demonstrate to be clear. No significant pulmonary nodules and/or mass effect. There is cardiomegaly. There are coronary artery calcifications. Grossly the unopacified liver, spleen and adrenal glands demonstrate to be within normal limits, no significant focal lesions were identified. Surgical clips within the gallbladder fossa corresponding to previous cholecystectomy. Again there is increased size of the pancreatic head with surrounding peripancreatic haziness suggesting the possibility of acute pancreatitis. No definitive pseudocyst formation and/or hemorrhage. Multiple varicose veins are identified within the splenic hilum extending inferiorly along the left flank draining into the lower splenic veins with fracture healing related to stenosis of origin the splenic vein. The kidneys demonstrate grossly unremarkable, no hydronephrosis or stones were identified. No focal masses were demonstrated. The ureters displays normal appearance with normal caliber, no hydroureter was seen. Grossly the unopacified stomach, small bowel and large bowel demonstrate to be within normal limits. Fecal residue and underdistention of the large bowel limits the evaluation. There is no evidence for bowel dilatation and/or free air. The appendix was unremarkable. The urinary bladder demonstrate to be within normal limits. The uterus is absent. The aorta demonstrate to be within normal limits. There is no retroperitoneal lymphadenopathy. There is no evidence for ascites. The rest of the soft tissue demonstrate to be grossly unremarkable. IMPRESSION: FINDINGS AGAIN SUGGEST MOST LIKELY ACUTE PANCREATITIS. STATUS POST CHOLECYSTECTOMY. Electronically signed by: Tc Rich MD 03/17/2020 3:16 AM [employer]
[2020-03-17] MEDS ORDERED: KCL 20MEQ/WATER FOR INJ 100ML 20 MEQ in PREMIX BAG 1 BAG IVPB ONE (03:46)
[2020-03-17] MEDS ORDERED: cefTRIAXone SODIUM 1 GM in SODIUM CHL 0.9% 50ML MIN-BAG+ 50 ML IVPB ONE (03:48)
[2020-03-17] MEDS ORDERED: levoFLOXacin 500MG IV 500 MG in PREMIX BAG 1 BAG IVPB ONE (03:48)
[2020-03-17] MEDS ORDERED: INSULIN, REG.(HUMAN) 100 U/ML VIAL IV ONE (03:58)
[2020-03-17] MEDS ORDERED: MORPHINE SULFATE INJ 10 MG/ML VIAL ONE (04:12)
[2020-03-17 04:22] VITALS: TEMP 97.6; O2SAT 96
[2020-03-17 04:50] VITALS: BP 162/97
== END 2020-03-17 05:00 | disposition short-term general hospital (02) ==
LOC: ER 01:19
DX: K85.80 Other acute pancreatitis without necrosis or infection (principal); N12 Tubulo-interstitial nephritis, not specified as acute or chronic; E78.1 Pure hyperglyceridemia; E87.1 Hypo-osmolality and hyponatremia; E11.65 Type 2 diabetes mellitus with hyperglycemia; I10 Essential (primary) hypertension; Z20.822 Contact with and (suspected) exposure to COVID-19; Z90.49 Acquired absence of other specified parts of digestive tract; Z79.899 Other long term (current) drug therapy; Z79.4 Long term (current) use of insulin; Z88.1 Allergy status to other antibiotic agents; Z88.0 Allergy status to penicillin
CPT/HCPCS: 74176; 80053; 81001; 82150; 82550; 82553; 83605; 83690; 83735; 83880; 84484; 85025; 85610; 85730; 87086; 87635; A4216; J0696; J1885; J1956; J2270; J2550; J3480; J7030; J7050